=== PATIENT | male | born 2000 | race Hispanic/Latino ===

== ENCOUNTER 2021-10-31 01:08 | Emergency (ER) | payer OTHER ==
[~2021-10-31] VITALS: Ht 180.3 cm; Wt 142.9 kg
[2021-10-31] MEDS ORDERED: ACETAMINOPHEN 500 MG TABLET ONE (01:50)
[2021-10-31 01:55] VITALS: BP 145/72
[2021-10-31] MEDS ORDERED: D-ME118S47 PO (01:55)
[2021-10-31] MEDS ORDERED: IBUP-2070 PO (01:55)
[2021-10-31] MEDS ORDERED: AZIT1PAC7 PO (01:55)
[2021-10-31] MEDS ORDERED: ACETAMINOPHEN 500 MG TABLET PO ONE (02:00)
== END 2021-10-31 02:02 | disposition home or self-care (01) ==
LOC: EDH 01:27
DX: U07.1 COVID-19 (principal); Z88.0 Allergy status to penicillin; Z90.89 Acquired absence of other organs

== ENCOUNTER 2022-07-22 18:44 | Emergency (ER) | payer BC, OTHER ==
[~2022-07-22] VITALS: Ht 180.3 cm; Wt 145.6 kg
[~2022-07-22 18:44] MED LIST: AZIT1PAC7 PO; D-ME118S47 PO; IBUP-2070 PO
[2022-07-22] MEDS ORDERED: IBUPROFEN 600 MG TABLET PO ONE (21:00)
[2022-07-22 21:05] LABS: APPEARANCE,URINE CLOUDY (CLEAR); BILIRUBIN,URINE 0.5 mg/dL (NEGATIVE); COLOR,URINE DARK-YELLOW (YELLOW); GLUCOSE, URINE (UA) 30 mg/dL (NEGATIVE); KETONES,URINE 5 mg/dL (NEGATIVE); LEUKOCYTE ESTERASE ,URINE 25 Leu/uL (NEGATIVE); NITRATE,URINE NEGATIVE (NEGATIVE); OCCULT BLOOD,URINE SMALL (NEGATIVE); PH,URINE 5.5 (5.0-8.0); PROTEIN,URINE 300 mg/dL (NEGATIVE); UROBILINOGEN,URINE 0.2 mg/dL (0.2-1.0)
[2022-07-22 21:09] LABS: BACTERIA,URINE FEW /HPF (None Seen); MUCUS,URINE MOD LPF (None Seen); SQUAMOUS EPITHELIAL CELL,UR RARE /HPF (0-2)
[2022-07-22 21:11] LABS: BASOPHILS % (AUTO) 0.6 % (0.0-5.0); HEMATOCRIT 47.2 % (42-54); LYMPHOCYTES % (AUTO) 17.5 % (21.0-51.0); MEAN CORPUSCULAR HEMOGLOBIN 26.8 pg (27.0-33.0); MEAN CORPUSCULAR HGB CONC 33.7 g/dL (32.0-36.0); MEAN CORPUSCULAR VOLUME 79.5 fL (79-99); MONOCYTES % (AUTO) 4.9 % (3.0-13.0); NEUTROPHILS % (AUTO) 76.3 % (40.0-77.0); PLATELET COUNT (AUTO) 170 K/uL (130-400); RED BLOOD CELL COUNT(AUTO) 5.94 MIL/uL (4.50-6.20); RED CELL DISTRIBUTION WIDTH 13.1 % (11.0-15.5); WHITE BLOOD COUNT (AUTO) 7.2 K/uL (4.8-10.8)
[2022-07-22 21:20] LABS: CREATININE 1.4 mg/dL (0.5-1.5); POTASSIUM 4.1 mmol/L (3.5-5.1)
[2022-07-22 21:25] LABS: ALBUMIN 3.6 g/dL (3.5-5.0); TOTAL PROTEIN, SERUM 8.1 g/dL (6.0-8.3)
[2022-07-22] MEDS ORDERED: 0.9%NACL 1000ML 2,000 ML IV SCH (21:30)
[2022-07-22] MEDS ORDERED: METOCLOPRAMIDE 10 MG/2 ML VIAL IVP ONE (21:30)
[2022-07-22] MEDS ORDERED: DiphenhydrAMINE HCL 50 MG/ML VIAL IV ONE (21:30)
[2022-07-22] MEDS ORDERED: KETOROLAC 30MG VIAL (30MG/ML) IVP ONE (21:30)
[2022-07-22 21:35] LABS: INR 1.14 (0.85-1.15); PROTHROMBIN TIME 12.3 SEC (9.6-11.6)
[2022-07-23] MEDS ORDERED: CEFU500T67 PO (01:47)
[2022-07-23] MEDS ORDERED: IBUP-1493 PO (01:47)
[2022-07-23] MEDS ORDERED: CEFTRIAXONE 1G VIAL IVP ONE (02:00)
[2022-07-23] MEDS ORDERED: SUMATRIPTAN SUCCINATE 6 MG/VIAL 0.5ML SQ SCH (02:00)
[2022-07-23] MEDS ORDERED: PHARMACY COMMUNICATION MISC SCH ×2 (02:30→03:00)
[2022-07-23] MEDS ORDERED: CEFTRIAXONE 1G VIAL ONE (02:31)
[2022-07-23 04:07] VITALS: BP 128/74
== END 2022-07-23 04:10 | disposition home or self-care (01) ==
LOC: EDH 18:44
DX: N39.0 Urinary tract infection, site not specified (principal); B34.9 Viral infection, unspecified; Z20.822 Contact with and (suspected) exposure to COVID-19; Z88.0 Allergy status to penicillin; Z90.89 Acquired absence of other organs
CPT/HCPCS: 99284; 96374; 70450; 71045; 96361; 96375 ×2; 87635; 82550; 84484; 80053; 85025; 85610; 85730; 87040 ×2; 87088; 87804 ×2; 83605; 81001; 36415; 93005; 96372; C9803; J1200; J1885; J2765; J3030; J0696